=== PATIENT | male | born 1975 | race Caucasian/White ===

== ENCOUNTER 2016-08-17 21:42 | Emergency (ER) | payer OTHER ==
--- NOTE | ~2016-08-17 | CR72 ---
[facility] A Service of [facility] [place] [place] RADIOLOGY TEXT RESULTS PATIENT: YAMIL RUEDA LOCATION: [facility] : 77 UNIT #: [id number] AGE: [address]: Zhang Alvarado MD SEX: M ORDER DR: [id number] [place], [place] [address] [id number] E MR#: [id number] Acc #: [id number] NAME: YAMIL RUEDA : 1975 SEX: M STUDY DATE/TIME: 08/17/2016 20:33 UNIT: [facility] ROOM: STUDY DESCRIPTION: CR Chest Single View Portable Attending Physician: Zhang Alvarado M.D. Ordering Physician: Ed Doctor [id number] [facility] Primary Care Physician: Aleida Nichols M.D. MEDICAL IMAGING REPORT This report is preliminary unless electronic signature is present EXAM AP portable chest dated 08/17/2016 at 20:33 HISTORY Weakness, shortness breath, cough and congestion today. Previous open-heart surgery. COMPARISON AP portable chest, 03/12/2015 FINDINGS Stable cardiac enlargement with signs of mediastinotomy. Linear scarring left mid lung unchanged from 2014. No acute airspace disease. No pleural effusion or pneumothorax. Pulmonary vascular distribution within normal limits. IMPRESSION Stable cardiac enlargement with median sternotomy. Stable left midlung linear scarring since 2014. No acute chest findings. Dictated by... Vesna Silverio M.D. THIS IS AN ELECTRONICALLY VERIFIED REPORT Vesna Silverio M.D. at 08/18/2016 2:43 PM KOKI/sajan TD: 08/18/2016 00:10 JOB #: [id number] [facility] A Service [facility] RADIOLOGY TEXT RESULTS PATIENT: YAMIL RUEDA LOCATION: [facility] : 77 UNIT #: [id number] AGE: [address]: Zhang Alvarado MD SEX: M ORDER DR: MEDICAL IMAGING REPORT COPY
--- NOTE | ~2016-08-17 | EKG ---
PATIENT: YAMIL RUEDA UNIT #: [id number] Ventricular Rate: 100 BPM Atrial Rate: 100 BPM P-R Interval: 170 ms QRS Duration: 132 ms Q-T Interval: 386 ms QTC Calculation(Bezet): 497 ms P [place]: 47 degrees Calculated R [place]: -34 degrees Calculated T [place]: 68 degrees Diagnosis Line: Normal sinus rhythm Diagnosis Line: Left axis deviation Diagnosis Line: Non-specific intra-ventricular conduction block Diagnosis Line: Abnormal ECG Diagnosis Line: No previous ECGs available Diagnosis Line: Confirmed by VIC CHAMBERS MD ([id number]) on 08/18/2016 Diagnosis Line: 6:24:22 PM INTERPRETING MD: TRISH QUINN
--- NOTE | ~2016-08-17 | EKG ---
PATIENT: YAMIL RUEDA UNIT #: [id number] Ventricular Rate: 105 BPM Atrial Rate: 105 BPM P-R Interval: 166 ms QRS Duration: 144 ms Q-T Interval: 374 ms QTC Calculation(Bezet): 494 ms Calculated R [place]: -32 degrees Calculated T [place]: 159 degrees Diagnosis Line: Sinus tachycardia Diagnosis Line: Left axis deviation Diagnosis Line: Right bundle branch block Cannot rule out Inferior Diagnosis Line: infarct Diagnosis Line: T wave abnormality, consider lateral ischemia Diagnosis Line: Abnormal ECG Diagnosis Line: When compared with ECG of 12-MAR-2015 18:41, Diagnosis Line: T wave inversion now evident in Lateral leads Diagnosis Line: Confirmed by VIC CHAMBERS MD ([id number]) on 08/18/2016 Diagnosis Line: 6:23:49 PM INTERPRETING MD: TRISH QUINN
[2016-08-17 20:33] LABS: BASOPHIL# 0.1 X10e3 (0-0.3); DIFF IND NO; EOSINOPHIL# 0.2 X10e3 (0-0.7); EOSINOPHIL% 2.5 % (0.0-7.0); HEMATOCRIT 48.7 % (38.0-50.0); HEMOGLOBIN 16.6 gm/dL (13.0-16.0); LYMPHOCYTE# 1.7 X10e3 (1.0-3.5); LYMPHOCYTE% 20.8 % (17.0-45.0); MEAN CELL VOLUME 83.9 FL (83-96); MEAN CORPUSCULAR HEMOGLOBIN 28.6 PG (28-34); MEAN PLATELET VOLUME 8.4 FL (6.5-11.5); MONOCYTE# 0.9 X10e3 (0-1.0); MONOCYTE% 11.6 % (3.0-12.0); NEUTROPHIL# 5.2 X10e3 (1.5-7.1); NEUTROPHIL% 64.1 % (40-75); PLATELET COUNT 203 X10e3 (140-420); RED CELL DISTRIBUTION WIDTH 13.3 % (11.0-15.5); WHITE BLOOD COUNT 8.1 X10e3 (4.0-10.5)
[2016-08-17 20:50] LABS: ALBUMIN SERUM 4.2 g/dL (3.5-5.0); ALKALINE PHOSPHATASE 51 U/L (32-92); ALT (SGPT) 25 U/L (10-40); AST (SGOT) 27 U/L (10-42); BILIRUBIN, DIRECT 0.1 mg/dL (0.0-0.2); BILIRUBIN,TOTAL 1.1 mg/dL (0.2-2.0); BLOOD UREA NITROGEN 12 mg/dL (9-23); BUN/CREATININE RATIO 17.14; CALCIUM SERUM 8.9 mg/dL (8.4-10.2); CARBON DIOXIDE 23 mmol/L (22-31); CHLORIDE 101 mmol/L (100-111); CREATININE SERUM 0.7 mg/dL (0.6-1.4); GLOM FILT RATE Estimated ABOVE60 mL/min (>60); GLUCOSE FASTING 294 mg/dL (70-110); POTASSIUM 3.8 mmol/L (3.5-5.1); PROTEIN TOTAL SERUM 7.9 g/dL (6.0-8.3); SODIUM 133 mmol/L (135-145)
[2016-08-17 21:17] LABS: POC - CKMB 3.6 ng/mL (0.0-7.9); POC - TROPONIN <0.05 ng/mL (<=0.05)
[~2016-08-17 21:42] MED LIST: ZITHROMAX
[2016-08-17 21:56] LABS: POC - CKMB 4.2 ng/mL (0.0-7.9); POC - TROPONIN <0.05 ng/mL (<=0.05)
== END 2016-08-17 22:48 | disposition home or self-care (01) ==
LOC: CED 21:42
PROVIDERS: Emergency Medicine
DX: R07.9 Chest pain, unspecified (principal); M79.602 Pain in left arm; E11.9 Type 2 diabetes mellitus without complications
CPT/HCPCS: 36415; 71010; 80048; 80076; 82553; 82947; 84484; 85025; 85379; 93005; 99284